=== PATIENT | male | born 1990 | race Caucasian/White ===

== ENCOUNTER 2019-03-27 21:57 | Emergency (ER) | payer OTHER ==
[2019-03-27] MEDS ORDERED: LIDOCAINE HCL 2% GEL TOP ONE ×2 (22:16→22:20)
[2019-03-27] MEDS ORDERED: BUPIVACAINE HCL 0.25% MPF 30 ML SOL INFIL ONE (22:20)
[2019-03-27] MEDS ORDERED: BUPIVACAINE HCL/PF 0.5% 30 ML VIAL INJ SCH (22:30)
[2019-03-27 23:02] VITALS: BP 160/91; PULSE 73; RESP 20; TEMP 98.1; O2SAT 100
== END 2019-03-27 23:14 | disposition home or self-care (01) | DRG 159 ==
LOC: ED 21:57
DX: K08.89 Other specified disorders of teeth and supporting structures (principal); K02.9 Dental caries, unspecified
CPT/HCPCS: 99282; A9270-GY